=== PATIENT | female | born 1965 | race Two or more races ===

== ENCOUNTER 2021-10-02 06:26 | Inpatient (IN) | payer BC ==
[~2021-10-02] VITALS: Ht 167.6 cm; Wt 125.8 kg
[2021-10-02 07:57] LABS: Basophils # (auto) 0.1 10 ^3/uL (0-0.2); Basophils % (auto) 0.8 % (0.0-2.0); Eosinophils # (auto) 0.1 10 ^3/uL (0-0.8); Hematocrit 34.3 % (36.0-46.0); Hemoglobin 11.4 g/dL (12.2-16.2); Lymphocytes # (auto) 1.7 10 ^3/uL (0.4-5.4); Lymphocytes % (auto) 11.9 % (10.0-50.0); Mean Corpuscular Hemoglobin 29.1 pg (28.0-32.0); Mean Corpuscular Hgb Conc. 33.2 g/dL (32.0-36.0); Mean Corpuscular Volume 87.7 fL (80.0-100.0); Monocytes # (auto) 0.9 10 ^3/uL (0-1.3); Monocytes % (auto) 6.6 % (0.0-12.0); Neutrophils # (auto) 11.2 10 ^3/uL (1.6-8.6); Neutrophils % (auto) 79.7 % (37.0-80.0); Red Blood Cells 3.91 10^6/uL (4.0-5.20)
[2021-10-02 08:12] LABS: BUN/Creatinine Ratio 15.5; Calcium 8.2 mg/dL (8.5-10.1); Potassium 4.3 mmol/L (3.5-5.1); Uric Acid 7.2 mg/dL (2.6-6.0)
[2021-10-02] MEDS ORDERED: CLINDAMYCIN 900MG IV 50 ML IV ONE (08:30)
[2021-10-02] MEDS ORDERED: cefTRIAXone 1GM/50ML D5W 50 ML IV ONE (08:30)
[2021-10-02] MEDS ORDERED: SODIUM CHLORIDE 0.9% 500 ML IV ONE (08:30)
[2021-10-02] MEDS ORDERED: methylPREDNISolone SOD SUCC 125 MG/2 ML VL IV ONE (08:45)
[2021-10-02] MEDS ORDERED: HYDROcodone-ACET 5/325MG TAB PO ONE (09:45)
[2021-10-02] MEDS ORDERED: ACETAMINOPHEN 325 MG TAB PO PRN (10:00)
[2021-10-02] MEDS ORDERED: DEXTROSE (50%) 50ML SYRG IV PRN (10:00)
[2021-10-02] MEDS ORDERED: FAMOTIDINE (10MG/ML) 2ML VL IV SCH (10:00)
[2021-10-02] MEDS ORDERED: NITROGLYCERIN 0.4 MG SL TAB SL PRN (11:00)
[2021-10-02] MEDS ORDERED: MORPHINE SULFATE INJECTION 2 MG/ML SYRG IV PRN (11:00)
[2021-10-02] MEDS: B-COMPLEX W/ C & FOLIC ACID(NEPHROVITE TAB) PO SCH (11:26)
[2021-10-02] MEDS: HEPARIN SODIUM (PORCINE) 5000 UNITS/ML 1ML VIAL SC SCH ×2 (11:27→22:56)
[2021-10-02] MEDS: ACCU-CHEK COMFORT CURVE STRIP VI SCH ×3 (11:58→22:57)
[2021-10-02] MEDS: InsuLIN REG 1unit/0.01ml Soln (100units/ml) SC SCH ×2 (11:59→22:00)
[2021-10-02] MEDS: SODIUM CHLOR 0.9% PF (SALINE LOCK) 10ML VIAL/SYR IV SCH ×2 (14:00→22:54)
[2021-10-02] MEDS: methylPREDNISolone SOD SUCC 40 MG/ML VL IV SCH ×2 (16:02→22:54)
[2021-10-02] MEDS: HYDROcodone-ACET 5/325MG TAB PO PRN ×2 (16:09→22:58)
[2021-10-02 16:14] VITALS: BP 159/96
[2021-10-02 17:00] VITALS: BP 145/91
[2021-10-02 20:00] VITALS: BP 148/83
[2021-10-02 22:00] VITALS: BP 148/83
[2021-10-02] MEDS ORDERED: InsuLIN REG 1unit/0.01ml Soln (100units/ml) SC SCH (22:00)
[2021-10-02] MEDS ORDERED: InsuLIN REG 1unit/0.01ml Soln (100units/ml) SC ONE (23:30)
[2021-10-02] MEDS ORDERED: INSULIN LANTUS (GLARGINE) 1 /0.01ml (100units/ml) SC ONE (23:45)
[2021-10-03] VITALS (7 sets, daily range): BP systolic 142–161; BP diastolic 76–91
[2021-10-03] MEDS: HYDROcodone-ACET 5/325MG TAB PO PRN ×4 (04:47→21:07)
[2021-10-03] MEDS: SODIUM CHLOR 0.9% PF (SALINE LOCK) 10ML VIAL/SYR IV SCH ×3 (06:11→23:06)
[2021-10-03] MEDS: methylPREDNISolone SOD SUCC 40 MG/ML VL IV SCH ×3 (06:12→23:06)
[2021-10-03] MEDS: InsuLIN REG 1unit/0.01ml Soln (100units/ml) SC SCH ×3 (06:39→23:09)
[2021-10-03] MEDS: ACCU-CHEK COMFORT CURVE STRIP VI SCH ×4 (06:40→23:11)
[2021-10-03 06:43] LABS: Basophils # (auto) 0 10 ^3/uL (0-0.2); Eosinophils # (auto) 0 10 ^3/uL (0-0.8); Hematocrit 30.7 % (36.0-46.0); Hemoglobin 10.4 g/dL (12.2-16.2); Lymphocytes % (auto) 5.6 % (10.0-50.0); Mean Corpuscular Hemoglobin 29.7 pg (28.0-32.0); Mean Corpuscular Hgb Conc. 33.7 g/dL (32.0-36.0); Monocytes # (auto) 0.3 10 ^3/uL (0-1.3); Neutrophils # (auto) 16.2 10 ^3/uL (1.6-8.6); Neutrophils % (auto) 92.4 % (37.0-80.0); Red Blood Cells 3.49 10^6/uL (4.0-5.20); Red Cell Distribution Width 12.7 % (11.8-14.3); White Blood Cell 17.5 10^3/uL (4.4-10.8)
[2021-10-03] MEDS ORDERED: InsuLIN REG 1unit/0.01ml Soln (100units/ml) SC ONE (06:45)
[2021-10-03] MEDS ORDERED: INSULIN LANTUS (GLARGINE) 1 /0.01ml (100units/ml) SC SCH ×2 (07:00→22:00)
[2021-10-03 07:04] LABS: Albumin 2.1 g/dL (3.4-5.0); Calcium 8.1 mg/dL (8.5-10.1); Potassium 4.4 mmol/L (3.5-5.1)
[2021-10-03 07:06] LABS: BUN/Creatinine Ratio 18.3
[2021-10-03 07:09] LABS: Bilirubin, Total 0.3 mg/dL (0.2-1.0); Total Protein 7.2 g/dL (6.4-8.2)
[2021-10-03] MEDS: B-COMPLEX W/ C & FOLIC ACID(NEPHROVITE TAB) PO SCH (09:36)
[2021-10-03] MEDS: cefTRIAXone 1GM/50ML D5W 50 ML IV SCH (09:36)
[2021-10-03] MEDS: HEPARIN SODIUM (PORCINE) 5000 UNITS/ML 1ML VIAL SC SCH ×2 (09:43→23:08)
[2021-10-03] MEDS ORDERED: VANCOMYCIN PER PHARMACY 0 MG IV SCH (12:00)
[2021-10-03] MEDS ORDERED: VANCOMYCIN 1GM/250ML 250 ML IV ONE (12:30)
[2021-10-03] MEDS ORDERED: DEXTROSE (50%) 50ML SYRG IV PRN ×2 (14:00→14:15)
[2021-10-03] MEDS: ONDANSETRON HCL 4 MG/2 ML VIAL IV PRN (14:55)
[2021-10-03] MEDS ORDERED: InsuLIN REG 1unit/0.01ml Soln (100units/ml) SC SCH ×2 (17:00→22:00)
[2021-10-03] MEDS ORDERED: ACCU-CHEK COMFORT CURVE STRIP VI SCH (17:00)
[2021-10-03] MEDS: INSULIN LANTUS (GLARGINE) 1 /0.01ml (100units/ml) SC SCH (23:11)
[2021-10-04 04:45] VITALS: BP 140/87
[2021-10-04 05:38] LABS: BUN/Creatinine Ratio 19.8; Calcium 8.1 mg/dL (8.5-10.1); Potassium 4.3 mmol/L (3.5-5.1)
[2021-10-04] MEDS: SODIUM CHLOR 0.9% PF (SALINE LOCK) 10ML VIAL/SYR IV SCH ×3 (06:33→22:02)
[2021-10-04] MEDS: methylPREDNISolone SOD SUCC 40 MG/ML VL IV SCH ×3 (06:33→22:02)
[2021-10-04] MEDS: InsuLIN REG 1unit/0.01ml Soln (100units/ml) SC SCH ×4 (06:44→21:57)
[2021-10-04] MEDS: ACCU-CHEK COMFORT CURVE STRIP VI SCH ×4 (06:45→21:58)
[2021-10-04] MEDS: INSULIN LANTUS (GLARGINE) 1 /0.01ml (100units/ml) SC SCH ×2 (06:47→21:58)
[2021-10-04] MEDS: HYDROcodone-ACET 5/325MG TAB PO PRN ×3 (06:48→19:46)
[2021-10-04 08:00] VITALS: BP 133/80
[2021-10-04 09:00] VITALS: BP 159/87
[2021-10-04] MEDS: cefTRIAXone 1GM/50ML D5W 50 ML IV SCH ×2 (09:00→11:38)
[2021-10-04] MEDS ORDERED: COLCHICINE 0.6 MG CAP PO ONE (09:45)
[2021-10-04] MEDS ORDERED: SODIUM CHLORIDE 0.9% 500 ML IV ONE (10:00)
[2021-10-04] MEDS: FAMOTIDINE (10MG/ML) 2ML VL IV SCH (10:00)
[2021-10-04] MEDS: B-COMPLEX W/ C & FOLIC ACID(NEPHROVITE TAB) PO SCH (10:00)
[2021-10-04] MEDS: HEPARIN SODIUM (PORCINE) 5000 UNITS/ML 1ML VIAL SC SCH ×2 (10:00→22:02)
[2021-10-04 10:29] LABS: Basophils # (auto) 0 10 ^3/uL (0-0.2); Basophils % (auto) 0.3 % (0.0-2.0); Eosinophils # (auto) 0 10 ^3/uL (0-0.8); Hematocrit 33.4 % (36.0-46.0); Hemoglobin 11.1 g/dL (12.2-16.2); Lymphocytes # (auto) 0.9 10 ^3/uL (0.4-5.4); Lymphocytes % (auto) 4.9 % (10.0-50.0); Mean Corpuscular Hgb Conc. 33.3 g/dL (32.0-36.0); Mean Corpuscular Volume 87.2 fL (80.0-100.0); Monocytes # (auto) 0.3 10 ^3/uL (0-1.3); Monocytes % (auto) 1.8 % (0.0-12.0); Neutrophils # (auto) 16.9 10 ^3/uL (1.6-8.6); Nucleated Red Blood Cells % 0.1 %; Red Blood Cells 3.83 10^6/uL (4.0-5.20); White Blood Cell 18.2 10^3/uL (4.4-10.8)
[2021-10-04 10:34] LABS: Albumin 2.2 g/dL (3.4-5.0); BUN/Creatinine Ratio 21.1; Potassium 4.4 mmol/L (3.5-5.1)
[2021-10-04 10:37] LABS: Bilirubin, Total 0.2 mg/dL (0.2-1.0); Total Protein 6.5 g/dL (6.4-8.2)
[2021-10-04 13:00] VITALS: BP 156/90
[2021-10-04 15:31] LABS: Protein, Urine 540.7 mg/dL (0.0-11.9)
[2021-10-04] MEDS ORDERED: VANCOMYCIN 1GM/250ML 250 ML IV ONE (15:45)
[2021-10-04 16:56] VITALS: BP 133/80
[2021-10-04 22:00] VITALS: BP 144/81
[2021-10-05 04:36] VITALS: BP 146/88
[2021-10-05 05:15] LABS: Basophils # (auto) 0 10 ^3/uL (0-0.2); Basophils % (auto) 0.1 % (0.0-2.0); Eosinophils # (auto) 0 10 ^3/uL (0-0.8); Hematocrit 33.3 % (36.0-46.0); Hemoglobin 11.1 g/dL (12.2-16.2); Lymphocytes # (auto) 0.8 10 ^3/uL (0.4-5.4); Lymphocytes % (auto) 5.1 % (10.0-50.0); Mean Corpuscular Hemoglobin 29.1 pg (28.0-32.0); Mean Corpuscular Hgb Conc. 33.2 g/dL (32.0-36.0); Mean Corpuscular Volume 87.4 fL (80.0-100.0); Monocytes # (auto) 0.2 10 ^3/uL (0-1.3); Monocytes % (auto) 1.1 % (0.0-12.0); Neutrophils # (auto) 14.8 10 ^3/uL (1.6-8.6); Neutrophils % (auto) 93.7 % (37.0-80.0); Nucleated Red Blood Cells % 0.1 %; Red Blood Cells 3.81 10^6/uL (4.0-5.20); White Blood Cell 15.8 10^3/uL (4.4-10.8)
[2021-10-05 05:18] LABS: Calcium 7.8 mg/dL (8.5-10.1); Potassium 4.8 mmol/L (3.5-5.1)
[2021-10-05 05:22] LABS: BUN/Creatinine Ratio 24.2
[2021-10-05 05:25] LABS: Bilirubin, Total 0.2 mg/dL (0.2-1.0); Total Protein 6.7 g/dL (6.4-8.2)
[2021-10-05] MEDS: methylPREDNISolone SOD SUCC 40 MG/ML VL IV SCH ×3 (06:18→22:06)
[2021-10-05] MEDS: SODIUM CHLOR 0.9% PF (SALINE LOCK) 10ML VIAL/SYR IV SCH ×3 (06:18→22:06)
[2021-10-05] MEDS: ACCU-CHEK COMFORT CURVE STRIP VI SCH ×4 (06:19→21:59)
[2021-10-05] MEDS: InsuLIN REG 1unit/0.01ml Soln (100units/ml) SC SCH ×4 (06:21→21:58)
[2021-10-05] MEDS: HYDROcodone-ACET 5/325MG TAB PO PRN ×3 (07:37→20:05)
[2021-10-05] MEDS ORDERED: SODIUM CHLORIDE 0.9% 500 ML IV ONE (09:00)
[2021-10-05] MEDS ORDERED: COLCHICINE 0.6 MG CAP PO ONE (09:00)
[2021-10-05] MEDS: B-COMPLEX W/ C & FOLIC ACID(NEPHROVITE TAB) PO SCH (09:26)
[2021-10-05] MEDS: INSULIN LANTUS (GLARGINE) 1 /0.01ml (100units/ml) SC SCH ×2 (09:27→21:59)
[2021-10-05] MEDS: HEPARIN SODIUM (PORCINE) 5000 UNITS/ML 1ML VIAL SC SCH ×2 (09:29→22:06)
[2021-10-05] MEDS: CALCIUM ACETATE 667 MG CAP PO SCH ×2 (12:00→18:11)
[2021-10-05 13:00] VITALS: BP 148/80
[2021-10-05 17:00] VITALS: BP 178/106
[2021-10-05 22:00] VITALS: BP 147/78
[2021-10-06 05:00] VITALS: BP 153/97
[2021-10-06] MEDS: HYDROcodone-ACET 5/325MG TAB PO PRN ×2 (05:36→16:49)
[2021-10-06 05:56] LABS: Potassium 4.6 mmol/L (3.5-5.1)
[2021-10-06 06:01] LABS: Albumin 2.1 g/dL (3.4-5.0); BUN/Creatinine Ratio 25.6
[2021-10-06 06:04] LABS: Bilirubin, Total 0.2 mg/dL (0.2-1.0); Total Protein 6.8 g/dL (6.4-8.2)
[2021-10-06] MEDS: ACCU-CHEK COMFORT CURVE STRIP VI SCH ×4 (06:25→21:44)
[2021-10-06] MEDS: InsuLIN REG 1unit/0.01ml Soln (100units/ml) SC SCH ×4 (06:25→21:43)
[2021-10-06] MEDS: SODIUM CHLOR 0.9% PF (SALINE LOCK) 10ML VIAL/SYR IV SCH ×3 (06:28→21:48)
[2021-10-06] MEDS: methylPREDNISolone SOD SUCC 40 MG/ML VL IV SCH ×3 (06:28→21:49)
[2021-10-06 06:34] LABS: Hematocrit 33.9 % (36.0-46.0); Hemoglobin 11.4 g/dL (12.2-16.2); Mean Corpuscular Hemoglobin 29.3 pg (28.0-32.0); Mean Corpuscular Hgb Conc. 33.6 g/dL (32.0-36.0); Mean Corpuscular Volume 87.2 fL (80.0-100.0); Red Blood Cells 3.88 10^6/uL (4.0-5.20); Red Cell Distribution Width 13.1 % (11.8-14.3)
[2021-10-06 06:39] LABS: Basophils % (manual) 0 (0.0-2.0); Blast Cells 0; Eosinophils % (manual) 0 (0-7); Myelocytes % 0; Promyelocytes % 0; Reactive Lymphocytes 0
[2021-10-06] MEDS: CALCIUM ACETATE 667 MG CAP PO SCH ×3 (08:00→17:23)
[2021-10-06 08:55] VITALS: BP 160/88
[2021-10-06] MEDS: cefTRIAXone 1GM/50ML D5W 50 ML IV SCH (09:05)
[2021-10-06] MEDS: FAMOTIDINE (10MG/ML) 2ML VL IV SCH (09:05)
[2021-10-06] MEDS: B-COMPLEX W/ C & FOLIC ACID(NEPHROVITE TAB) PO SCH (09:06)
[2021-10-06] MEDS: HEPARIN SODIUM (PORCINE) 5000 UNITS/ML 1ML VIAL SC SCH ×2 (09:06→21:49)
[2021-10-06] MEDS: INSULIN LANTUS (GLARGINE) 1 /0.01ml (100units/ml) SC SCH ×2 (09:11→21:44)
[2021-10-06 10:35] LABS: Band Neutrophils % (manual) 1; Lymphocytes % (manual) 8 (10.0-50.0); Metamyelocytes % 1; Monocytes % (manual) 5 (0-12)
[2021-10-06 11:30] VITALS: BP 149/93
[2021-10-06] MEDS: DOCUSATE SOD 100 MG CAP PO PRN ×2 (11:59→21:56)
[2021-10-06 22:00] VITALS: BP 148/84
[2021-10-07 05:00] VITALS: BP 156/90
[2021-10-07] MEDS: HYDROcodone-ACET 5/325MG TAB PO PRN (05:06)
[2021-10-07] MEDS: ACCU-CHEK COMFORT CURVE STRIP VI SCH ×4 (06:30→21:39)
[2021-10-07] MEDS: InsuLIN REG 1unit/0.01ml Soln (100units/ml) SC SCH ×4 (06:30→21:39)
[2021-10-07] MEDS: SODIUM CHLOR 0.9% PF (SALINE LOCK) 10ML VIAL/SYR IV SCH ×3 (06:33→21:47)
[2021-10-07] MEDS: methylPREDNISolone SOD SUCC 40 MG/ML VL IV SCH ×3 (06:33→21:47)
[2021-10-07 09:00] VITALS: BP 169/93
[2021-10-07] MEDS: cefTRIAXone 1GM/50ML D5W 50 ML IV SCH (12:34)
[2021-10-07] MEDS: CALCIUM ACETATE 667 MG CAP PO SCH ×3 (12:34→17:38)
[2021-10-07] MEDS: B-COMPLEX W/ C & FOLIC ACID(NEPHROVITE TAB) PO SCH (12:34)
[2021-10-07] MEDS: HEPARIN SODIUM (PORCINE) 5000 UNITS/ML 1ML VIAL SC SCH ×2 (12:35→21:48)
[2021-10-07] MEDS: INSULIN LANTUS (GLARGINE) 1 /0.01ml (100units/ml) SC SCH ×2 (12:36→21:39)
[2021-10-07 13:00] VITALS: BP 143/58
[2021-10-07 17:49] VITALS: BP 159/93
[2021-10-07 22:00] VITALS: BP 166/85
[2021-10-08 05:02] VITALS: BP 127/85
[2021-10-08] MEDS: ACCU-CHEK COMFORT CURVE STRIP VI SCH ×4 (06:31→21:31)
[2021-10-08] MEDS: SODIUM CHLOR 0.9% PF (SALINE LOCK) 10ML VIAL/SYR IV SCH ×3 (06:31→21:37)
[2021-10-08] MEDS: methylPREDNISolone SOD SUCC 40 MG/ML VL IV SCH (06:31)
[2021-10-08] MEDS: InsuLIN REG 1unit/0.01ml Soln (100units/ml) SC SCH ×4 (06:34→21:32)
[2021-10-08] MEDS: CALCIUM ACETATE 667 MG CAP PO SCH ×3 (08:39→18:18)
[2021-10-08] MEDS: B-COMPLEX W/ C & FOLIC ACID(NEPHROVITE TAB) PO SCH (08:40)
[2021-10-08] MEDS: cefTRIAXone 1GM/50ML D5W 50 ML IV SCH (08:40)
[2021-10-08] MEDS: FAMOTIDINE (10MG/ML) 2ML VL IV SCH (08:40)
[2021-10-08] MEDS: HEPARIN SODIUM (PORCINE) 5000 UNITS/ML 1ML VIAL SC SCH ×2 (08:41→21:36)
[2021-10-08 09:00] VITALS: BP 177/97
[2021-10-08] MEDS: INSULIN LANTUS (GLARGINE) 1 /0.01ml (100units/ml) SC SCH ×3 (10:00→21:32)
[2021-10-08 10:10] VITALS: BP 152/86
[2021-10-08] MEDS ORDERED: ERGOCALCIFEROL 50,000 UNIT(1.25MG) CAP PO SCH (11:00)
[2021-10-08 13:00] VITALS: BP 157/89
[2021-10-08] MEDS: HYDROcodone-ACET 5/325MG TAB PO PRN ×2 (13:33→20:36)
[2021-10-08] MEDS ORDERED: methylPREDNISolone SOD SUCC 40 MG/ML VL IV SCH (14:00)
[2021-10-08 15:17] LABS: Calcium 7.6 mg/dL (8.5-10.1); Potassium 3.8 mmol/L (3.5-5.1)
[2021-10-08 15:21] LABS: BUN/Creatinine Ratio 28.9; Bilirubin, Total 0.2 mg/dL (0.2-1.0); Phosphorus 3.9 mg/dL (2.5-4.90); Total Protein 6.2 g/dL (6.4-8.2); Uric Acid 6.7 mg/dL (2.6-6.0)
[2021-10-08 17:00] VITALS: BP 163/84
[2021-10-08 22:00] VITALS: BP 135/79
[2021-10-09] MEDS: ONDANSETRON HCL 4 MG/2 ML VIAL IV PRN (03:11)
[2021-10-09] MEDS: HYDROcodone-ACET 5/325MG TAB PO PRN ×4 (04:05→22:28)
[2021-10-09 05:00] VITALS: BP 131/68
[2021-10-09] MEDS: SODIUM CHLOR 0.9% PF (SALINE LOCK) 10ML VIAL/SYR IV SCH ×3 (06:15→22:27)
[2021-10-09] MEDS: InsuLIN REG 1unit/0.01ml Soln (100units/ml) SC SCH ×4 (06:15→22:30)
[2021-10-09] MEDS: ACCU-CHEK COMFORT CURVE STRIP VI SCH ×4 (06:16→22:27)
[2021-10-09] MEDS: CALCIUM ACETATE 667 MG CAP PO SCH ×3 (08:14→18:55)
[2021-10-09 09:00] VITALS: BP 139/70
[2021-10-09] MEDS: cefTRIAXone 1GM/50ML D5W 50 ML IV SCH (09:00)
[2021-10-09] MEDS: HEPARIN SODIUM (PORCINE) 5000 UNITS/ML 1ML VIAL SC SCH ×2 (10:18→22:29)
[2021-10-09] MEDS: B-COMPLEX W/ C & FOLIC ACID(NEPHROVITE TAB) PO SCH (10:18)
[2021-10-09] MEDS: INSULIN LANTUS (GLARGINE) 1 /0.01ml (100units/ml) SC SCH ×2 (10:19→22:31)
[2021-10-09 13:00] VITALS: BP 147/68
[2021-10-09 17:00] VITALS: BP 152/80
[2021-10-09 22:00] VITALS: BP 136/81
[2021-10-10 05:00] VITALS: BP 152/79
[2021-10-10 05:21] LABS: Hematocrit 33.1 % (36.0-46.0); Hemoglobin 11.1 g/dL (12.2-16.2); Mean Corpuscular Hemoglobin 29.3 pg (28.0-32.0); Mean Corpuscular Hgb Conc. 33.6 g/dL (32.0-36.0); Mean Corpuscular Volume 87.3 fL (80.0-100.0); Red Blood Cells 3.79 10^6/uL (4.0-5.20); Red Cell Distribution Width 13.3 % (11.8-14.3); White Blood Cell 14.9 10^3/uL (4.4-10.8)
[2021-10-10] MEDS: HYDROcodone-ACET 5/325MG TAB PO PRN ×3 (05:27→19:50)
[2021-10-10 05:43] LABS: Basophils % (manual) 0 (0.0-2.0); Blast Cells 0; Promyelocytes % 0; Reactive Lymphocytes 0
[2021-10-10 05:48] LABS: Potassium 3.8 mmol/L (3.5-5.1)
[2021-10-10 05:53] LABS: Albumin 1.8 g/dL (3.4-5.0); BUN/Creatinine Ratio 28.6; Calcium 8.1 mg/dL (8.5-10.1)
[2021-10-10 06:02] LABS: Bilirubin, Total 0.2 mg/dL (0.2-1.0); Total Protein 5.5 g/dL (6.4-8.2)
[2021-10-10] MEDS: InsuLIN REG 1unit/0.01ml Soln (100units/ml) SC SCH ×4 (06:50→23:10)
[2021-10-10] MEDS: SODIUM CHLOR 0.9% PF (SALINE LOCK) 10ML VIAL/SYR IV SCH ×3 (06:52→23:08)
[2021-10-10] MEDS: ACCU-CHEK COMFORT CURVE STRIP VI SCH ×4 (06:52→23:08)
[2021-10-10 07:48] LABS: Band Neutrophils % (manual) 3
[2021-10-10 07:49] LABS: Eosinophils % (manual) 3 (0-7); Lymphocytes % (manual) 15 (10.0-50.0); Metamyelocytes % 1; Monocytes % (manual) 6 (0-12); Myelocytes % 2
[2021-10-10] MEDS: CALCIUM ACETATE 667 MG CAP PO SCH ×3 (08:34→17:30)
[2021-10-10] MEDS: cefTRIAXone 1GM/50ML D5W 50 ML IV SCH (08:34)
[2021-10-10 08:56] VITALS: BP 128/70
[2021-10-10] MEDS: B-COMPLEX W/ C & FOLIC ACID(NEPHROVITE TAB) PO SCH (10:22)
[2021-10-10] MEDS: FAMOTIDINE (10MG/ML) 2ML VL IV SCH (10:22)
[2021-10-10] MEDS: HEPARIN SODIUM (PORCINE) 5000 UNITS/ML 1ML VIAL SC SCH ×2 (10:23→23:09)
[2021-10-10] MEDS: INSULIN LANTUS (GLARGINE) 1 /0.01ml (100units/ml) SC SCH ×2 (10:24→23:10)
[2021-10-10 13:00] VITALS: BP 141/90
[2021-10-10 22:00] VITALS: BP 140/74
[2021-10-11 00:56] VITALS: BP 148/61
[2021-10-11] MEDS: HYDROcodone-ACET 5/325MG TAB PO PRN (01:53)
== END 2021-10-11 01:58 | disposition short-term general hospital (02) | DRG 539 ==
LOC: ER 06:26 → OVERFLOW 10:58 → CENTRAL 15:50
PROVIDERS: ADMIT Nurse Practitioner Family; ATTEND Internal Medicine
DX: M86.141 Other acute osteomyelitis, right hand (principal); N18.6 End stage renal disease; L03.114 Cellulitis of left upper limb; E87.1 Hypo-osmolality and hyponatremia; Z68.41 Body mass index [BMI] 40.0-44.9, adult; I12.0 Hypertensive chronic kidney disease with stage 5 chronic kidney disease or end stage renal disease; M86.8X4 Other osteomyelitis, hand; E11.69 Type 2 diabetes mellitus with other specified complication; M10.9 Gout, unspecified; E78.5 Hyperlipidemia, unspecified; E11.22 Type 2 diabetes mellitus with diabetic chronic kidney disease; E11.65 Type 2 diabetes mellitus with hyperglycemia; D63.1 Anemia in chronic kidney disease; E66.01 Morbid (severe) obesity due to excess calories; E55.9 Vitamin D deficiency, unspecified; E83.39 Other disorders of phosphorus metabolism; Z20.822 Contact with and (suspected) exposure to COVID-19; Z79.84 Long term (current) use of oral hypoglycemic drugs
CPT/HCPCS: 36415; 73130; 73200; 73218; 74176; 76775; 80048; 80053; 80202; 82306; 82570; 82962; 83036; 83605; 83970; 84100; 84156; 84300; 84550; 85007; 85025; 85027; 85652; 86141; 86803; 87040; 87077; 87186; 87426; 96365; 96375; G0378; J0696; J1815; J2405; J3490